=== PATIENT | male | born 1985 | race Caucasian/White ===

== ENCOUNTER 2017-06-13 21:41 | Emergency (ER) | payer OTHER ==
[~2017-06-13] VITALS: Ht 170.2 cm; Wt 74.8 kg
[~2017-06-13 21:41] MED LIST: CATAPRES0.1 MG PO; CLINDAMYCIN HC300 MG PO; DESYREL100 MG PO; METHADONE10 MG PO; NAPROXEN500 M2 PO; NOHOMEMEDS; OXYCODONE30 MG PO; OXYCONTIN60 MG PO
[2017-06-13 23:00] LABS: ADD MIUA? YES; BILIRUBIN NEGATIVE; BLOOD NEGATIVE; COLOR YELLOW ((YELLOW)); GLUCOSE (STRIP) NEGATIVE; KETONES 5; LEUKOCYTES TRACE; NITRITE NEGATIVE; PROTEIN (STRIP) NEGATIVE; SPECIFIC GRAVITY 1.026 (1.000-1.030); UROBILINOGEN 0.2 MG/DL (0.2-1.0)
[2017-06-13 23:23] LABS: BACTERIA NONE SEEN /HPF; CALCIUM OXALATE CRYSTALS 3+ /HPF; EPITHELIAL CELLS NONE SEEN /HPF; MUCUS 2+ /LPF; RED BLOOD CELLS 0-5 /HPF (0-5); UCUL ADDED? NO; WHITE BLOOD CELLS 0-5 /HPF (0-5)
[2017-06-14] MEDS ORDERED: VIBRAMYCIN100 MG PO (01:27)
[2017-06-14] MEDS ORDERED: MOTRIN800 MG PO (01:28)
[2017-06-14 02:16] VITALS: BP 148/93
== END 2017-06-14 02:20 | disposition home or self-care (01) ==
LOC: EME 21:41 → EXP 21:41
PROVIDERS: Physician Assistant
DX: N50.3 Cyst of epididymis (principal); Z87.442 Personal history of urinary calculi; F17.200 Nicotine dependence, unspecified, uncomplicated
CPT/HCPCS: 76870; 81003; 99281; 99283; J0696

== ENCOUNTER 2017-12-26 13:17 | Emergency (ER) | payer OTHER ==
[~2017-12-26] VITALS: Ht 170.2 cm; Wt 75.7 kg
[~2017-12-26 13:17] MED LIST changes: +MOTRIN800 MG PO; +VIBRAMYCIN100 MG PO
[2017-12-26 13:49] LABS: HEMATOCRIT 42.8 % (38.0-50.0); HEMOGLOBIN 14.7 G/DL (12.5-16.6); MCH 30.2 PG (29.0-34.0); MCHC 34.3 G/DL (30.0-36.0); MCV 87.9 FL (86-99); PLATELET COUNT 263 K/uL (156-360); RBC DIS.WIDTH-CV 12.5 % (11.8-14.6); RBC DIS.WIDTH-SD 40.3 % (39-53); RED BLOOD COUNT 4.87 M/uL (4.00-5.50)
[2017-12-26 13:58] LABS: CHLORIDE 107 mEq/L (99-109); POTASSIUM 3.9 mEq/L (3.7-5.4); SODIUM 142 mEq/L (136-147)
[2017-12-26 14:00] LABS: GLUCOSE 93 mg/dL (70-99)
[2017-12-26 14:04] LABS: CREATININE 0.9 mg/dL (0.6-1.3); GFR ESTIMATE (CALCULATED) > 59 mL/min/ (58.99-99999)
[2017-12-26 14:05] LABS: UREA NITROGEN (BUN) 21 mg/dL (9-23)
[2017-12-26 14:12] LABS: TROP-I INTERPRETATION NEGATIVE; TROPONIN-I < 0.01 ng/mL (0.0-0.30)
[2017-12-26] MEDS ORDERED: FLEXERIL10 MG PO (14:38)
[2017-12-26 15:51] VITALS: BP 125/75
== END 2017-12-26 15:52 | disposition home or self-care (01) ==
LOC: EME 13:17
DX: M94.0 Chondrocostal junction syndrome [Tietze] (principal); F41.9 Anxiety disorder, unspecified; Z87.442 Personal history of urinary calculi; F17.200 Nicotine dependence, unspecified, uncomplicated; Z79.891 Long term (current) use of opiate analgesic
CPT/HCPCS: 71046; 80048; 84484; 85027; 93005; 99281; 99284